=== PATIENT | male | born 1965 | race Caucasian/White ===

== ENCOUNTER 2021-02-23 16:47 | Outpatient (CLI) | payer MEDICARE, SELFPAY ==
[2021-02-23 18:04] LABS: SARS-CoV-2 RNA PCR Negative (Negative)
== END 2021-02-23 16:48 | disposition home or self-care (01) ==
LOC: CHSLAB 16:52
PROVIDERS: PCP Physician Assistant; Visit Provider Physician Assistant
DX: Z20.822 Contact with and (suspected) exposure to COVID-19 (principal)
CPT/HCPCS: C9803; U0003; U0005